=== PATIENT | male | born 1965 | race Caucasian/White ===

== ENCOUNTER → 2020-04-24 | Outpatient (CLI) | payer OTHER ==
--- NOTE | 2020-04-25 16:02 | SLEEP ---
[facility] NOCTURNAL POLYSOMNOGRAPHY ORDERED BY: Dr. Charles, 's [facility] Nocturnal polysomnography was performed for evaluation of sleep physiology. There was 8 hours and 24 minutes of data reviewed. There was 450 of minutes of sleep identified. Sleep latency was normal at 12 minutes. REM latency was mildly prolonged at 122 minutes. Sleep architecture showed some fragmentation. There were three REM cycles appreciated. Overall sleep efficiency was 90.4%. The electrocardiogram showed a sinus rhythm with an average heart rate of 68 beats per minute. Rate ranged 60-80 beats per minute. EEG showed some coarsening in background. Occasional EKG bleed-through but no focal events and normal waveforms for wake and sleep. There were 277 respiratory events identified of 10 seconds in duration or greater for an apnea-hypopnea index of 36.9. The events were primarily obstructive, though 61 mixed and central apneas were also scored. There events were to exclusive to sleep stage nor body position. Arousals from respiratory events occurred 17.7 times per hour, and oxygen desaturations fell to the low 80s. Some activity was noted in the limb EMG leads, but limb movement arousals were few at 2.7 per hour, and snoring was noted over the course of the entire study. IMPRESSION: Severe obstructive sleep apnea syndrome (G47.33). Apnea-hypopnea index 36.9. RECOMMENDATION: The patient should be encouraged to return to the sleep disorder center for pressure therapy. In the interim, alcohol and sedative avoidance should be practiced and caution exercised during the operation of motor vehicles.
== END ==
LOC: M SLEEP 20:00
PROVIDERS: ATTEND Family Medicine
DX: G47.33 Obstructive sleep apnea (adult) (pediatric) (principal)

== ENCOUNTER → 2020-06-23 | Outpatient (CLI) | payer OTHER ==
--- NOTE | 2020-06-25 13:08 | SLEEPCENT ---
NOCTURNAL POLYSOMNOGRAPHY CPAP TITRATION DATE: 06/23/2020 ORDERED BY: Seven Charles MD Nocturnal polysomnography was performed for the titration of pressure therapy in this patient with severe obstructive sleep apnea syndrome with apnea-hypopnea index of 36.9. For testing a Respironics Ginger View full face mask was used of medium size, 4 cm of water pressure were applied to the circuit, and the lights were extinguished. 6 hours and 23 minutes of data were reviewed. There were 335 minutes of sleep identified. Sleep latency was normal at 11 minutes. REM latency was somewhat delayed at 166 minutes. Sleep architecture improved over the course of the study. There were two long REM cycles noted. Overall sleep efficiency was 88.7%. The electrocardiogram showed a sinus rhythm with an average heart rate of 60 beats per minute. EEG showed reasonably normal waveforms for wake and sleep. Respiratory events were fully palliated with CPAP at a pressure of 10 with some scattered limb activity and remaining measures of sleep physiology were normal. IMPRESSION: Obstructive sleep apnea syndrome (G47.33). RECOMMENDATION: Nightly use of pressure therapy 10 cm of water.
== END ==
LOC: M SLEEP 20:00
PROVIDERS: ATTEND Family Medicine
DX: G47.33 Obstructive sleep apnea (adult) (pediatric) (principal)

== ENCOUNTER 2022-11-23 20:41 | Emergency (ER) | payer OTHER ==
[~2022-11-23] VITALS: Ht 175.3 cm; Wt 74.1 kg
[2022-11-23] MEDS ORDERED: MED REC IN PROGRESS XX SCH (21:20)
[2022-11-23 22:07] LABS: AMPHETAMINES LEVEL URINE NEGATIVE (NEGATIVE); BARBITURATES URINE NEGATIVE (NEGATIVE); CANNABINOIDS URINE NEGATIVE (NEGATIVE); COCAINE METABOLITE URINE NEGATIVE (NEGATIVE); METHADONE URINE NEGATIVE (NEGATIVE); OPIATES URINE NEGATIVE (NEGATIVE); PHENCYCLIDINE URINE NEGATIVE (NEGATIVE)
[2022-11-23 22:10] LABS: BENZODIAZEPINES URINE POSITIVE (NEGATIVE)
[2022-11-23] MEDS ORDERED: NAPR500T6 PO (23:08)
[2022-11-23] MEDS ORDERED: METH-1164 PO (23:08)
[2022-11-23] MEDS ORDERED: CETI-24 PO (23:08)
[2022-11-23] MEDS ORDERED: FLON1SPR NARES (23:08)
[2022-11-23] MEDS ORDERED: ZOLO100T PO (23:08)
[2022-11-23] MEDS ORDERED: DICL1GEL3 TOP (23:08)
[2022-11-23] MEDS ORDERED: ZETI10TA16 PO (23:08)
[2022-11-23] MEDS ORDERED: LIDO5TD TOP (23:08)
[2022-11-23 23:29] LABS: HEMATOCRIT 45.8 % (42.0-52.0); HEMOGLOBIN 15.6 g/dl (13.5-17.5); MEAN CORPUSCULAR HEMOGLOBIN 31.1 pg (27.0-33.0); MEAN CORPUSCULAR HGB CONC 34.1 g/dl (32.0-36.5); MEAN CORPUSCULAR VOLUME 91.2 fl (80.0-96.0); PLATELET COUNT, AUTOMATED 226 10^3/uL (150-450); RED BLOOD COUNT 5.02 10^6/uL (4.30-6.10); WHITE BLOOD COUNT 7.9 10^3/uL (4.0-10.0)
[2022-11-23 23:39] LABS: ETHYL ALCOHOL (ETHANOL) 0.004 % (0.000-0.010)
[2022-11-23 23:40] LABS: ACETAMINOPHEN LEVEL < 2.0 UG/ML (10.0-20.0)
[2022-11-23 23:41] LABS: ALBUMIN 3.8 G/DL (3.2-5.2); ALKALINE PHOSPHATASE 78 U/L (46-116); ALT/SGPT 18 U/L (7.0-40); AST/SGOT 15 U/L (<34); BILIRUBIN,DIRECT < 0.1 MG/DL (<0.4); BILIRUBIN,TOTAL 0.3 MG/DL (0.3-1.2); BLOOD UREA NITROGEN 18 MG/DL (9-23); CALCIUM LEVEL 9.3 MG/DL (8.5-10.1); CARBON DIOXIDE LEVEL 27 MMOL/L (20-31); CHLORIDE LEVEL 104 MMOL/L (98-107); CREATININE FOR GFR 0.98 MG/DL (0.70-1.30); GLOMERULAR FILTRATION RATE > 60.0 (>56); GLUCOSE, FASTING 116 MG/DL (60-100); POTASSIUM SERUM 3.7 MMOL/L (3.5-5.1); SALICYLATE LEVEL < 3.0 MG/DL (<30); SODIUM LEVEL 139 MMOL/L (136-145); TOTAL PROTEIN 6.7 G/DL (5.7-8.2)
[2022-11-23 23:43] LABS: THYROID STIMULATING HORMONE 4.522 uIU/ML (0.55-4.78)
[2022-11-24 00:30] VITALS: BP 123/77; TEMP 97.9; O2SAT 98
== END 2022-11-24 00:31 | disposition home or self-care (01) ==
LOC: M ED 20:41
DX: F43.0 Acute stress reaction (principal); F32.A Depression, unspecified

== ENCOUNTER → 2023-02-11 | Outpatient (REF) ==
[~2023-02-11] MED LIST: CETI-24 PO; DICL100G10 TOP; EZET10TA58 PO; FLON1SPR NARES; LIDO5TD TOP; METH-1164 PO; NAPR500T6 PO; ZOLO100T PO
== END ==
LOC: M PLAIMG 08:49
PROVIDERS: ATTEND Internal Medicine
DX: R06.02 Shortness of breath (principal)